=== PATIENT | male | born 1980 | race Caucasian/White ===

== ENCOUNTER 2020-04-18 12:25 | Emergency (ER) | payer OTHER ==
[~2020-04-18] VITALS: Ht 182 cm; Wt 95.4 kg
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
[2020-04-18] MEDS ORDERED: fentaNYL INJECTION 100 MCG/2 ML AMP IVP ONE ×2 (12:45→13:45)
[2020-04-18] MEDS ORDERED: TETANUS,DIPTH,PERTUSS P/F (BOOSTRIX) 0.5 ML VIAL IM ONE (12:45)
[2020-04-18] MEDS ORDERED: ceFAZolin INJECTION 1,000 MG in WATER (STERILE) FOR INJECTION 10 ML IV ONE ×2 (12:45→13:15)
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
--- NOTE | 2020-04-18 13:36 | NUR ---
DRESSING REINFORCED COLLES SPLINT PLACED BY Bruce FIELDS APRN
--- NOTE | 2020-04-18 13:50 | NUR ---
REPORT GIVEN TO DAVID QUIROZ TAKING PATIENT TO [facility] BY POV BOTH INSTRUCTION NOT TO EAT OR DRINK
[2020-04-18 13:54] VITALS: BP 120/72
== END 2020-04-18 13:59 | disposition short-term general hospital (02) ==
LOC: EDUNIT# 12:25 → ER 12:27
DX: S62.92XB Unspecified fracture of left hand, initial encounter for open fracture (principal); S51.812A Laceration without foreign body of left forearm, initial encounter; Z23 Encounter for immunization; V86.39XA Unspecified occupant of other special all-terrain or other off-road motor vehicle injured in traffic accident, initial encounter
CPT/HCPCS: 73090; 73130; 90715